=== PATIENT | female | born 1980 | race Caucasian/White ===

== ENCOUNTER → 2024-08-06 | Outpatient (CLI) | payer BC, OTHER, SELFPAY ==
[2024-08-06 10:11] LABS: Basophils # (Auto) 0.1 Thou/mm3 (0.0-0.2); Basophils % (Auto) 1 % (0-2.5); Eosinophils # (Auto) 0.2 Thou/mm3 (0.0-0.5); Eosinophils % (Auto) 3 % (0-10); Hematocrit 41.5 % (36.0-46.0); Hemoglobin 13.1 g/dL (12.0-16.0); Immature Granulocytes % (Auto) 0 % (0-0); Immature Granulocytes Auto 0.01 Thou/mm3 (0.00-0.00); Lymphocytes # (Auto) 1.4 Thou/mm3 (1.0-4.8); Lymphocytes % (Auto) 19 % (10-50); Mean Corpuscular HGB Conc 31.6 g/dl (31.0-37.0); Mean Corpuscular Hemoglobin 26.4 pg (25.0-35.0); Mean Corpuscular Volume 84 fL (80-100); Monocytes # (Auto) 0.8 Thou/mm3 (0.0-0.8); Monocytes % (Auto) 11 % (0-12); Neutrophils # (Auto) 4.6 Thou/mm3 (1.8-7.7); Neutrophils % (Auto) 65 % (37-80); Nucleated Red Blood Cell % 0 /100 WBC (0); Platelet Count 327 Thou/mm3 (140-440); RDW Standard Deviation 40.7 fL (36.4-46.3); Red Blood Count 4.96 Miln/mm3 (4.00-5.20); White Blood Count 7.1 Thou/mm3 (3.6-11.0)
[2024-08-06 10:41] LABS: Glucose Estimated Average 105 mg/dL (80-131); Hemoglobin A1C 5.3 % Hgb (4.8-6.0)
[2024-08-06 10:45] LABS: Alanine Aminotransferase 26 U/L (10-49); Albumin, Serum 4.3 gm/dL (3.5-5.0); Albumin/Globulin Ratio 1.6 (1.2-2.2); Alkaline Phosphatase 88 U/L (46-116); Anion Gap 10 (7-16); Aspartate Amino Transferase 20 U/L (0-34); BUN/Creatinine Ratio 11 Ratio (12-20); Bilirubin,Total 0.5 mg/dL (0.3-1.2); Blood Urea Nitrogen 8 mg/dL (9-23); Cardiac Risk Estimate 3.4 RATIO (3.7-5.6); Chloride 103 mMol/L (98-107); Cholesterol 214 mg/dL (132-200); Creatinine (Component) 0.7 mg/dL (0.6-1.3); Globulin 2.7 gm/dL (2.3-3.5); Glucose 110 mg/dL (74-106); HDL Cholesterol 63 mg/dL (40-60); LDL Cholesterol,Calculated 133 mg/dL (0-130); Osmolality,Calculated 276 (275-295); Potassium 4.8 mMol/L (3.4-5.1); Sodium 139 mMol/L (136-145); Triglycerides 91 mg/dL (30-150); eGFR > 60 See Note
[2024-08-06 11:05] LABS: Thyroid Stimulating Hormone 1.73 uIU/mL (0.55-4.78)
[2024-08-06 15:36] LABS: T4 (Thyroxine) 9.5 mcg/dL (4.5-10.9)
== END | disposition home or self-care (01) ==
PROVIDERS: PCP Family Medicine; Referring Provider Family Medicine; Visit Provider Family Medicine
DX: N95.8 Other specified menopausal and perimenopausal disorders (principal); E66.09 Other obesity due to excess calories; Z68.41 Body mass index [BMI] 40.0-44.9, adult; E78.2 Mixed hyperlipidemia; R79.9 Abnormal finding of blood chemistry, unspecified
CPT/HCPCS: 36415; 80053; 80061; 83036; 84436; 84443; 85025

== ENCOUNTER → 2024-09-16 | Outpatient (CLI) | payer BC, OTHER, SELFPAY ==
--- NOTE | 2024-09-16 09:15 | XR_ITS ---
Examination: Screening digital mammography, bilateral Computer aided detection 3-D breast Tomosynthesis, bilateral Date and time of exam: September 16, 2024 0907 hrs. Indication: Screening Technique: Nonmagnified MLO, CC views of the breasts to been obtained, reconstructed from 3-D Tomosynthesis images. R2 computer aided detection program utilized for evaluation of suspicious masses and/or abnormal calcifications. 3-D Tomosynthesis images obtained. Findings: Scattered areas of fibroglandular density 16 mm focal asymmetry upper-outer left breast mid depth Benign calcifications Impression: BI-RADS Category 0: Incomplete: Need additional imaging evaluation 16 mm focal asymmetry upper outer left breast mid depth, recommend follow-up spot tomographic views of this asymmetry as well as left breast sonography to complete the workup.
== END | disposition home or self-care (01) ==
LOC: CDIM 08:50
PROVIDERS: PCP Family Medicine; Referring Provider Specialist; Visit Provider Specialist
DX: Z12.31 Encounter for screening mammogram for malignant neoplasm of breast (principal); N64.89 Other specified disorders of breast; R92.8 Other abnormal and inconclusive findings on diagnostic imaging of breast
CPT/HCPCS: 77063; 77067

== ENCOUNTER → 2024-09-17 | Outpatient (CLI) | payer BC, OTHER, SELFPAY ==
--- NOTE | 2024-09-17 10:41 | XR_ITS ---
Examination: Breast ultrasound, unilateral, left complete Date and time of exam: September 17, 2024 1110 hours INDICATIONS: Mammogram September 16, 2024 16 mm focal asymmetry upper outer left breast mid depth Technique: Real-time armas scale ultrasonographic imaging performed left breast including all 4 quadrants as well as nipple retroareolar and axillary region. Findings: No cystic or solid mass IMPRESSION: BI-RADS Category 1: Negative study
--- NOTE | 2024-09-17 10:41 | XR_ITS ---
Examination: Diagnostic digital mammography, unilateral, left Computer aided detection 3-D breast Tomosynthesis, unilateral Date and time of exam: September 17, 2024 1049 hours INDICATIONS: Mammogram September 16, 2024 16 mm focal asymmetry upper outer left breast Technique: Nonmagnified MLO, CC views of the left breast have been obtained, reconstructed from 3-D Tomosynthesis images. R2 computer aided detection program utilized for evaluation of suspicious masses and/or abnormal calcifications. 3-D Tomosynthesis images obtained. Findings: Scattered areas of fibroglandular density Focal asymmetry remains in the outer left breast although the left breast sonogram today demonstrates no suspicious masses Impression: BI-RADS category 3: Probably benign findings One additional 6 month left mammogram follow-up is needed
== END | disposition home or self-care (01) ==
PROVIDERS: PCP Family Medicine; Referring Provider Specialist; Visit Provider Specialist
DX: R92.332 Mammographic heterogeneous density, left breast (principal)
CPT/HCPCS: 76641; 77061; 77065; G0279

== ENCOUNTER → 2025-03-18 | Outpatient (CLI) | payer BC, OTHER, SELFPAY ==
--- NOTE | 2025-03-18 15:00 | XR_ITS ---
Examination: Diagnostic digital mammography, bilateral Computer aided detection 3-D breast Tomosynthesis, bilateral Date and time of exam: March 18, 2025 1457 hours, compared to mammograms dating to September 16, 2024 INDICATIONS: Mammogram September 16, 2024 16 mm focal asymmetry upper outer left breast Technique: Nonmagnified MLO, CC views of the breasts to been obtained, reconstructed from 3-D Tomosynthesis images. R2 computer aided detection program utilized for evaluation of suspicious masses and/or abnormal calcifications. 3-D Tomosynthesis images obtained. Findings: Scattered areas of fibroglandular density. Stable focal asymmetry upper outer left breast Impression: BI-RADS Category 3: Probably benign findings Recommend 6 month bilateral mammography follow-up.
== END | disposition home or self-care (01) ==
LOC: CDIM 14:32
PROVIDERS: PCP Family Medicine; Referring Provider Surgery; Visit Provider Surgery
DX: R92.333 Mammographic heterogeneous density, bilateral breasts (principal)
CPT/HCPCS: 77062; 77066; G0279